=== PATIENT | female | born 1965 | race African-American/Black ===

== ENCOUNTER 2017-02-23 11:56 | Emergency (ER) | payer SELFPAY ==
[~2017-02-23] VITALS: Ht 165.1 cm; Wt 101.0 kg
[2017-02-23 13:04] LABS: HEMATOCRIT 30.5 % (36.0-46.0); MCH 22.5 PG (29.0-34.0); MCHC 31.1 G/DL (30.0-36.0); MCV 72.3 FL (83-99); MEAN PLAT.VOLUME 10.3 uM^3 (9.5-12.4); PLATELET COUNT 285 K/uL (156-360); RBC DIS.WIDTH-CV 16.6 % (11.8-14.6); RBC DIS.WIDTH-SD 42.5 % (39-53); RED BLOOD COUNT 4.22 M/uL (3.80-5.20); WHITE BLOOD COUNT 27.9 K/uL (4.1-10.2)
[2017-02-23 13:11] LABS: CHLORIDE 105 mEq/L (99-109); POTASSIUM 3.5 mEq/L (3.7-5.4)
[2017-02-23 13:12] LABS: SODIUM 137 mEq/L (136-147)
[2017-02-23 13:14] LABS: GLUCOSE 171 mg/dL (70-99)
[2017-02-23 13:15] LABS: ANION GAP 11 MEQ/L (2-14)
[2017-02-23 13:16] LABS: TOTAL BILIRUBIN 1.1 mg/dL (0.0-1.0)
[2017-02-23 13:17] LABS: ALKALINE PHOSPHATASE 110 IU/L (3-129)
[2017-02-23 13:19] LABS: UREA NITROGEN (BUN) 7 mg/dL (9-23)
[2017-02-23 13:21] LABS: LIPASE 2 U/L (1.0-51.0)
[2017-02-23 13:27] LABS: QUANTITATIVE HCG < 4.0 MIU/ML
[2017-02-23 13:29] LABS: GFR ESTIMATE (CALCULATED) > 59 mL/min/
[2017-02-23 13:43] LABS: ADD MIUA? YES; BILIRUBIN NEGATIVE; BLOOD LARGE; COLOR YELLOW ((YELLOW)); GLUCOSE (STRIP) NEGATIVE; KETONES NEGATIVE; LEUKOCYTES NEGATIVE; NITRITE NEGATIVE; PROTEIN (STRIP) 30; SPECIFIC GRAVITY 1.006 (1.000-1.030); UROBILINOGEN 0.2 MG/DL (0.2-1.0)
[2017-02-23] MEDS ORDERED: MULTIVITAMIN1 EAC2 PO (13:47)
[2017-02-23 13:49] LABS: BACTERIA RARE /HPF; EPITHELIAL CELLS RARE /HPF; MUCUS TRACE /LPF; UCUL ADDED? NO; WHITE BLOOD CELLS 0-5 /HPF (0-5)
[2017-02-24 01:42] VITALS: BP 100/63
== END 2017-02-24 01:42 | disposition short-term general hospital (02) ==
LOC: EME 11:56
PROVIDERS: Nurse Practitioner Family
DX: A41.9 Sepsis, unspecified organism (principal); N83.202 Unspecified ovarian cyst, left side; D25.9 Leiomyoma of uterus, unspecified; R00.0 Tachycardia, unspecified; D50.9 Iron deficiency anemia, unspecified
CPT/HCPCS: 74177; 80053; 81003; 83605; 83690; 84702; 85027; 87040; 99281; 99285; J1885; J2405; J2543; J3010; J3370; J7040

== ENCOUNTER 2017-03-07 09:38 | Emergency (ER) | payer SELFPAY ==
[~2017-03-07] VITALS: Ht 157.5 cm; Wt 96.9 kg
[~2017-03-07 09:38] MED LIST: MULTIVITAMIN1 EAC2 PO
[2017-03-07 10:51] LABS: MCH 22.3 PG (29.0-34.0); MCHC 30.6 G/DL (30.0-36.0); MCV 72.8 FL (83-99); MEAN PLAT.VOLUME 9.1 uM^3 (9.5-12.4); RBC DIS.WIDTH-CV 18.4 % (11.8-14.6); RBC DIS.WIDTH-SD 45.1 % (39-53); RED BLOOD COUNT 4.26 M/uL (3.80-5.20); WHITE BLOOD COUNT 8.6 K/uL (4.1-10.2)
[2017-03-07 10:54] LABS: PLATELET COUNT 695 K/uL (156-360)
[2017-03-07 11:04] LABS: CHLORIDE 106 mEq/L (99-109); POTASSIUM 4.4 mEq/L (3.7-5.4); SODIUM 142 mEq/L (136-147)
[2017-03-07 11:06] LABS: GLUCOSE 107 mg/dL (70-99)
[2017-03-07 11:07] LABS: ANION GAP 12 MEQ/L (2-14)
[2017-03-07 11:10] LABS: GFR ESTIMATE (CALCULATED) > 59 mL/min/; UREA NITROGEN (BUN) 12 mg/dL (9-23)
[2017-03-07 11:11] LABS: TROP-I INTERPRETATION NEGATIVE; TROPONIN-I < 0.01 ng/mL (0.0-0.30)
[2017-03-07 11:56] LABS: ADD MIUA? NO; BILIRUBIN NEGATIVE; BLOOD NEGATIVE; COLOR STRAW ((YELLOW)); GLUCOSE (STRIP) NEGATIVE; KETONES NEGATIVE; LEUKOCYTES NEGATIVE; NITRITE NEGATIVE; PROTEIN (STRIP) NEGATIVE; SPECIFIC GRAVITY 1.006 (1.000-1.030); UCUL ADDED? NO; UROBILINOGEN 0.2 MG/DL (0.2-1.0)
[2017-03-07 13:59] LABS: TROP-I INTERPRETATION NEGATIVE; TROPONIN-I < 0.01 ng/mL (0.0-0.30)
[2017-03-07 15:01] VITALS: BP 180/83
== END 2017-03-07 15:02 | disposition home or self-care (01) ==
LOC: EME 09:38
PROVIDERS: Emergency Medicine
DX: R07.89 Other chest pain (principal); Z98.890 Other specified postprocedural states; Z90.710 Acquired absence of both cervix and uterus
CPT/HCPCS: 71020; 71275; 74177; 80048; 81003; 84484; 85027; 93005; 99281; 99285; J7030

== ENCOUNTER 2018-01-21 13:22 | Emergency (ER) | payer SELFPAY ==
[~2018-01-21] VITALS: Ht 157.5 cm; Wt 106.0 kg
[2018-01-21 14:06] LABS: HEMATOCRIT 36.1 % (36.0-46.0); HEMOGLOBIN 11.4 G/DL (11.9-15.5); MCH 24.2 PG (29.0-34.0); MCHC 31.6 G/DL (30.0-36.0); MCV 76.6 FL (83-99); PLATELET COUNT 339 K/uL (156-360); RBC DIS.WIDTH-CV 16.2 % (11.8-14.6); RED BLOOD COUNT 4.71 M/uL (3.80-5.20)
[2018-01-21 14:17] LABS: CHLORIDE 106 mEq/L (99-109); POTASSIUM 4.2 mEq/L (3.7-5.4); SODIUM 139 mEq/L (136-147)
[2018-01-21 14:19] LABS: GLUCOSE 83 mg/dL (70-99)
[2018-01-21 14:22] LABS: CREATININE 0.7 mg/dL (0.6-1.3); GFR ESTIMATE (CALCULATED) > 59 mL/min/
[2018-01-21 14:23] LABS: UREA NITROGEN (BUN) 11 mg/dL (9-23)
[2018-01-21 14:27] LABS: TROP-I INTERPRETATION NEGATIVE; TROPONIN-I < 0.01 ng/mL (0.0-0.30)
[2018-01-21] MEDS ORDERED: NORVASC5 MG PO (15:07)
[2018-01-21 15:21] VITALS: BP 189/88
== END 2018-01-21 15:22 | disposition home or self-care (01) ==
LOC: RME 13:22 → EME 13:22 → RME 15:22
PROVIDERS: Emergency Medicine
DX: I10 Essential (primary) hypertension (principal); M79.642 Pain in left hand; M25.522 Pain in left elbow
CPT/HCPCS: 71046; 80048; 84484; 85027; 93005; 99281; 99284